=== PATIENT | female | born 1970 | race Caucasian/White ===

== ENCOUNTER 2018-07-21 05:57 | Emergency (ER) | payer MEDICARE ==
[~2018-07-21] VITALS: Ht 162.6 cm; Wt 80.7 kg
[2018-07-21 06:05] VITALS: BP_SYST 144
[2018-07-21 07:32] VITALS: BP_SYST 138
== END 2018-07-21 07:32 | disposition home or self-care (01) ==
LOC: SED 05:57
DX: H10.9 Unspecified conjunctivitis (principal); H57.12 Ocular pain, left eye; Z85.3 Personal history of malignant neoplasm of breast; Z85.72 Personal history of non-Hodgkin lymphomas
CPT/HCPCS: 99283

== ENCOUNTER 2019-02-07 14:36 | Emergency (ER) | payer BC, MEDICARE ==
[~2019-02-07] VITALS: Ht 167.6 cm; Wt 79.4 kg
--- NOTE | 2019-02-07 14:36 | NUR ---
Pt placed in bed 7, EKG is being performed.
[2019-02-07 14:39] VITALS: BP_SYST 160
--- NOTE | 2019-02-07 14:44 | NUR ---
Pt ambulated into ER with substernal chest pressure since 0630 this morning. Pt states pain has increased since this morning, "more pressure." Pt states has some SOB but is able to communicate in full sentences. Pt denies n/v. Pt has pain when applying pressure on chest. Denies trauma or fall.
--- NOTE | 2019-02-07 14:45 | NUR ---
ER at bedside examining patient.
[2019-02-07] MEDS ORDERED: KETOROLAC TROMETHAMINE 30 MG VIAL IM ONE (15:00)
[2019-02-07] MEDS ORDERED: ASPIRIN 81 MG TAB.CHEW PO ONE (15:00)
--- NOTE | 2019-02-07 15:12 | NUR ---
X ray at bedside
[2019-02-07 15:26] LABS: BASOPHILS % (AUTO) 0.5 % (0.0-2.0); EOSINOPHILS # (AUTO) 0.2 K/uL (0.0-0.4); EOSINOPHILS % (AUTO) 2.4 % (0.0-4.0); HEMATOCRIT 36.1 % (36-48); HEMOGLOBIN 11.7 g/dL (12.0-16.0); LYMPHOCYTES # (AUTO) 2.4 K/uL (1.0-5.5); LYMPHOCYTES % (AUTO) 37.6 % (20.5-51.5); MEAN CORPUSCULAR HEMOGLOBIN 25 pg (27-31); MEAN CORPUSCULAR HGB CONC 32 % (32-36); MEAN CORPUSCULAR VOLUME 77 fL (79.0-98.0); MONOCYTES # (AUTO) 0.4 K/uL (0.0-1.0); MONOCYTES % (AUTO) 6.6 % (1.7-9.3); NEUTROPHILS # (AUTO) 3.4 K/uL (1.8-7.7); NEUTROPHILS % (AUTO) 52.9 % (40.0-70.0); PLATELET COUNT (AUTO) 168 K/uL (130-430); RED BLOOD CELL COUNT(AUTO) 4.68 MIL/uL (4.2-6.2); RED CELL DISTRIBUTION WIDTH 16.9 % (9.0-15.0); WHITE BLOOD COUNT (AUTO) 6.4 K/uL (4.8-10.8)
[2019-02-07 15:32] LABS: CALCIUM 9.3 mg/dL (8.4-11.0); CREATININE 0.7 mg/dL (0.55-1.30)
[2019-02-07 15:37] LABS: ALBUMIN 3.6 g/dL (3.4-4.8); TOTAL BILIRUBIN 0.5 mg/dL (0.0-1.0)
[2019-02-07] MEDS ORDERED: MORPHINE 4 MG/ML INJ. SYRINGE IM ONE (16:15)
[2019-02-07 16:32] VITALS: BP_SYST 139
--- NOTE | 2019-02-07 16:32 | NUR ---
Patient given written and verbal discharge instructions and verbalizes understanding. ER MD Peck discussed with patient the results and treatment provided. Patient in stable condition. ID arm band removed. Rx of Tramadol, Ibuprofen given. Patient educated on pain management and to follow up with PMD. Pain Scale 0. Opportunity for questions provided and answered. Medication side effect fact sheet provided.
== END 2019-02-07 16:32 | disposition home or self-care (01) ==
LOC: SED 14:36
DX: R07.89 Other chest pain (principal); R03.0 Elevated blood-pressure reading, without diagnosis of hypertension; Z85.3 Personal history of malignant neoplasm of breast
CPT/HCPCS: 36415; 71045; 80053; 82550; 84484; 85025; 85379; 93005; 96372; 99284; J1885; J2270

== ENCOUNTER 2019-10-07 05:22 | Emergency (ER) | payer BC ==
[~2019-10-07] VITALS: Ht 162.6 cm; Wt 90.7 kg
[2019-10-07 05:30] VITALS: BP_SYST 155
--- NOTE | 2019-10-07 05:42 | NUR ---
Patient to ER bed 7 to gown for evaluation. Side rails up. Report given to Betzaida KOEHLER.
--- NOTE | 2019-10-07 05:53 | NUR ---
Pt ambulates to ER bed with c/o lower back pain. Pt states lower back pain began 3 days prior. Pt states pain is 8/10. Pt states urine frequency and pain with urination. Pt states taking advil and tylenol but "it doesn't work." Upon assessment, no abrasion, no swelling, no discoloration and no laceration noted. Will continue to monitor.
--- NOTE | 2019-10-07 05:56 | NUR ---
ER Dr. Griffith at bedside examining patient.
[2019-10-07] MEDS ORDERED: KETOROLAC TROMETHAMINE 60 MG/2 ML VIAL IM ONE (06:15)
[2019-10-07 07:00] VITALS: BP_SYST 155
--- NOTE | 2019-10-07 07:00 | NUR ---
Patient given written and verbal discharge instructions and verbalizes understanding. ER MD discussed with patient the results and treatment provided. Patient in stable condition. ID arm band removed. Rx of promethazine, motrin, robaxin given. Patient educated on pain management and to follow up with PMD. Pain Scale 0/10. Opportunity for questions provided and answered. Medication side effect fact sheet provided.
== END 2019-10-07 07:00 | disposition home or self-care (01) ==
LOC: SED 05:22
DX: S39.012A Strain of muscle, fascia and tendon of lower back, initial encounter (principal); R05 Cough; R03.0 Elevated blood-pressure reading, without diagnosis of hypertension; Z85.3 Personal history of malignant neoplasm of breast; X50.0XXA Overexertion from strenuous movement or load, initial encounter; Y93.89 Activity, other specified; Y92.89 Other specified places as the place of occurrence of the external cause; Y99.8 Other external cause status
CPT/HCPCS: 96372; 99283; J1885

== ENCOUNTER 2020-01-04 19:43 | Emergency (ER) | payer BC ==
[~2020-01-04] VITALS: Ht 162.6 cm; Wt 90.7 kg
[2020-01-04 19:50] VITALS: BP_SYST 177
[2020-01-04 21:01] VITALS: BP_SYST 168
== END 2020-01-04 21:01 | disposition home or self-care (01) ==
LOC: SED 19:43
DX: J02.9 Acute pharyngitis, unspecified (principal)
CPT/HCPCS: 36415; 71045; 86403; 86710; 87081; 99284